=== PATIENT | male | born 1975 | race African-American/Black ===

== ENCOUNTER 2019-02-20 10:29 | Inpatient (IN) | payer BC, OTHER ==
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
[2019-02-20] MEDS ORDERED: SODIUM CHLORIDE 0.9% 500 ML INFUS.BAG IV ONE ×2 (10:54→11:46)
[2019-02-20 11:38] LABS: ALBUMIN 5.1 g/dl (3.4-5.0); BILIRUBIN,TOTAL 2.4 mg/dl (0.2-1); CALCIUM 12.1 mg/dl (8.5-10); CREATININE 1.6 mg/dl (0.55-1.3); POTASSIUM 4.3 mmol/L (3.5-5.1); TOT PROT 8.4 g/dl (6.4-8.2)
[2019-02-20] MEDS ORDERED: INSULIN REGULAR 100 UNITS in SODIUM CHLORIDE 99 ML IVPB SCH (11:45)
[2019-02-20] MEDS ORDERED: INSULIN REGULAR HUMAN 100 UNITS/ML *VIAL IVPUSH ONE (11:45)
[2019-02-20 11:59] LABS: HEMATOCRIT 52.6 % (35.4-49); HEMOGLOBIN 16.5 GM/dl (11.7-16.9); MCH 26.2 pg (25.7-33.7); MCHC 31.5 g/dl (32.0-35.9); MEAN CELL VOLUME 83.2 fl (80-96); MEAN PLT VOLUME 11.1 fl (7.5-11.1); PLATELET COUNT 191 K/MM3 (134-434); RBC 6.32 M/mm3 (4.00-5.60); RDW 14.3 % (11.9-15.9); WHITE BLOOD COUNT 16.3 K/mm3 (4.0-10.8)
[2019-02-20] MEDS ORDERED: INSULIN REGULAR HUMAN 100 UNITS/ML *VIAL ONE (12:01)
[2019-02-20 12:10] LABS: EPITHELIAL CELLS RARE /hpf
[2019-02-20 12:14] LABS: VENOUS PC02 19.9 mmHg (38-52); VENOUS PO2 90.4 mmHg (28-48)
[2019-02-20 12:21] LABS: VENOUS PH 7.17 (7.31-7.41)
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
[2019-02-20 13:08] LABS: PLATELET ESTIMATE ADEQUATE
[2019-02-20] MEDS ORDERED: SODIUM CHLORIDE 0.45%/POT 20 MEQ/1,000 ML INFUS.BAG IV SCH (14:30)
[2019-02-20] MEDS ORDERED: SODIUM CHLORIDE 0.45% 1,000 ML IV SCH (14:30)
--- NOTE | 2019-02-20 14:44 | CONSULT ---
Consultation: REQUESTING PROVIDER: Bettina . CONSULT REQUEST: We have been asked to medically evaluate this patient for ( Diabetic Ketoacidosis). HISTORY OF PRESENT ILLNESS: Pt's spouse at bedside providing history as pt lethargic. Pt is a 43 y/o M with a significant past medical history of borderline HTN, Concussion (Apr 2018), and Depression who presented to [facility] ED due to increased thirst, urination, and decreased energy. Spouse endorses that pt has been c/o symptoms for 3 weeks. This past Wednesday, pt was extremely lethargic and spouse had to help him with routine activities. Pt has never been diagnosed with DM in the past. Pt has lost 30 lbs within past few months 2/2 depression, per spouse. PMH- as above SocialHx- Denies Alcohol or tobacco use. - [place] SurgHx- Nerve Block for migraines REVIEW OF SYSTEMS: CONSTITUTIONAL: Absent: fever, chills, diaphoresis, generalized weakness, malaise, loss of appetite, weight change HEENT: Absent: rhinorrhea, nasal congestion, throat pain, throat swelling, difficulty swallowing, mouth swelling, ear pain, eye pain, visual changes CARDIOVASCULAR: Absent: chest pain, syncope, palpitations, irregular heart rate, lightheadedness , peripheral edema RESPIRATORY: Absent: cough, shortness of breath, dyspnea with exertion, orthopnea, wheezing, stridor, hemoptysis GASTROINTESTINAL: Absent: abdominal pain, abdominal distension, nausea, vomiting, diarrhea, constipation, melena, hematochezia GENITOURINARY: Absent: dysuria, frequency, urgency, hesitancy, hematuria, flank pain, genital pain MUSCULOSKELETAL: Absent: myalgia, arthralgia, joint swelling, back pain, neck pain SKIN: Absent: rash, itching, pallor HEMATOLOGIC/IMMUNOLOGIC: Absent: easy bleeding, easy bruising, lymphadenopathy, frequent infections ENDOCRINE: PRESENT: unexplained weight loss, increased thirst, increased urination NEUROLOGIC: Absent: headache, focal weakness or paresthesias, dizziness, unsteady gait, seizure, mental status changes, bladder or bowel incontinence PSYCHIATRIC: Absent: anxiety, depression, suicidal or homicidal ideation, hallucinations. PHYSICAL EXAMINATION Vital Signs - 24 hr 02/20/19 02/20/19 02/20/19 10:30 11:30 12:21 Temperature 99.6 F 99.6 F Pulse Rate 150 H Pulse Rate [ 143 H 137 H Left] Respiratory 22 H 18 20 Rate Blood Pressure 154/104 H Blood Pressure 158/103 H 156/106 H [Left Arm] O2 Sat by Pulse 99 99 100 Oximetry (%) 02/20/19 02/20/19 12:31 14:33 Temperature 98.9 F Pulse Rate Pulse Rate [ 140 H Left] Respiratory 21 H 22 H Rate Blood Pressure Blood Pressure 168/86 138/92 [Left Arm] O2 Sat by Pulse 100 99 Oximetry (%) GENERAL: Somnolent HEAD: Normal with no signs of trauma. EYES: EOMI Sclera Clear EARS, NOSE, THROAT: Dry mucous membranes LUNGS: CTAB HEART: Tachycardic S1S2 ABDOMEN: NDNT. LOWER EXTREMITIES: No CCE Laboratory Results - last 24 hr 02/20/19 02/20/19 02/20/19 10:49 11:04 11:04 WBC 16.3 H RBC 6.32 H Hgb 16.5 Hct 52.6 H MCV 83.2 MCH 26.2 MCHC 31.5 L RDW 14.3 Plt Count 191 MPV 11.1 Absolute Neuts (auto) 14.4 Neutrophils % No Result Required. Neutrophils % (Manual) 88.0 H Band Neutrophils % 2.0 Lymphocytes % No Result Required. Lymphocytes % (Manual) 8.0 Monocytes % (Manual) 2 L Platelet Estimate Adequate Platelet Comment Moderate large plts VBG pH POC VBG pCO2 POC VBG pO2 VBG HCO3 VBG O2 Sat (Ld) VBG Base Excess Sodium 135 L Potassium 4.3 Chloride 102 Carbon Dioxide 7 L Anion Gap 26 H BUN 28.0 H Creatinine 1.6 H Est GFR (CKD-EPI)AfAm 60.68 Est GFR (CKD-EPI)NonAf 52.36 POC Glucometer > 600 Random Glucose 963 H* Lactic Acid Calcium 12.1 H Total Bilirubin 2.4 H AST 23 ALT 53 Alkaline Phosphatase 131 H Creatine Kinase Troponin I Total Protein 8.4 H Albumin 5.1 H Urine Color Urine Appearance Urine pH Urine Protein Urine Glucose (UA) Urine Ketones Urine Blood Urine Nitrite Urine Bilirubin Urine Urobilinogen Ur Leukocyte Esterase Urine RBC Urine WBC Ur Transition Epith Cell Urine Casts 02/20/19 02/20/19 02/20/19 11:04 11:04 11:04 WBC RBC Hgb Hct MCV MCH MCHC RDW Plt Count MPV Absolute Neuts (auto) Neutrophils % Neutrophils % (Manual) Band Neutrophils % Lymphocytes % Lymphocytes % (Manual) Monocytes % (Manual) Platelet Estimate Platelet Comment VBG pH POC VBG pCO2 POC VBG pO2 VBG HCO3 VBG O2 Sat (Ld) VBG Base Excess Sodium Potassium Chloride Carbon Dioxide Anion Gap BUN Creatinine Est GFR (CKD-EPI)AfAm Est GFR (CKD-EPI)NonAf POC Glucometer Random Glucose Lactic Acid 2.8 H* Calcium Total Bilirubin AST ALT Alkaline Phosphatase Creatine Kinase 36 Troponin I < 0.03 Total Protein Albumin Urine Color Urine Appearance Urine pH Urine Protein Urine Glucose (UA) Urine Ketones Urine Blood Urine Nitrite Urine Bilirubin Urine Urobilinogen Ur Leukocyte Esterase Urine RBC Urine WBC Ur Transition Epith Cell Urine Casts 02/20/19 02/20/19 02/20/19 11:04 11:04 14:09 WBC RBC Hgb Hct MCV MCH MCHC RDW Plt Count MPV Absolute Neuts (auto) Neutrophils % Neutrophils % (Manual) Band Neutrophils % Lymphocytes % Lymphocytes % (Manual) Monocytes % (Manual) Platelet Estimate Platelet Comment VBG pH 7.17 L* POC VBG pCO2 19.9 L POC VBG pO2 90.4 H VBG HCO3 7.0 L VBG O2 Sat (Ld) 95.0 H VBG Base Excess -20.8 L Sodium Potassium Chloride Carbon Dioxide Anion Gap BUN Creatinine Est GFR (CKD-EPI)AfAm Est GFR (CKD-EPI)NonAf POC Glucometer 564 Random Glucose Lactic Acid Calcium Total Bilirubin AST ALT Alkaline Phosphatase Creatine Kinase Troponin I Total Protein Albumin Urine Color Yellow Urine Appearance Clear Urine pH 5.0 Urine Protein 1+ H Urine Glucose (UA) 2+ Urine Ketones 4+ H Urine Blood 1+ H Urine Nitrite Negative Urine Bilirubin Negative Urine Urobilinogen 0.2 Ur Leukocyte Esterase Negative Urine RBC 2-5 Urine WBC 0-2 Ur Transition Epith Cell Rare Urine Casts Finely granular 0-1 Active Medications Generic Name Dose Route Start Last Admin Trade Name Freq PRN Reason Stop Dose Admin Chlorhexidine Gluconate 1 applic 02/20/19 22:00 Hibiclens For Decolonization - TP HS CHOLO Enoxaparin Sodium 40 mg 02/21/19 10:00 Lovenox - SQ DAILY CHOLO Insulin Human Regular 100 100 mls @ 8.84 mls/hr 02/20/19 11:45 02/20/19 12:12 units/ Sodium Chloride IVPB 0.1 units/kg/hr TITR CHOLO 8.84 mls/hr Administration Protocol 0.1 UNITS/KG/HR Potassium Chloride 40 meq/ 1,020 mls @ 125 mls/hr 02/20/19 14:45 Sodium Chloride IVPB ASDIR CHOLO Mupirocin 1 applic 02/20/19 22:00 Bactroban Ointment (For Decolonization) - NS 02/25/19 21:59 BID CHOLO ASSESSMENT/PLAN: Pt is a 43 y/o M with a significant past medical history of borderline HTN, Concussion (Apr 2018), and Depression who presented to [facility] ED due to increased thirst, urination, and decreased energy; found to be in DKA. #Diabetic Ketoacidosis -VBH PH 7.17, CO2 7, AG 27, Urine Ketones 4+, B Hydroxybutyrate pending, Glucose 963 -Bolus with NS and LR. Placed on standing fluids at 150cc. -BGMQ1H, BMP Q3H -Once Glucose <250, will switch fluids to D5 1/2 NS to prevent hypoglycemia -Once anion gap closed and ketosis resolved, will bridge to SC insulin and place pt on diet. -Counseled on diabetic diet and compliance with medication. #Depression -Resume home PO meds in am #FEN -NS w/ 40 mEQ KCL -Monitor Electrolytes -Diet when has appetite and ketosis resolving DVT ppx: -Shad SQ Daily Dispo: We will continue to follow the patient. Thank you for this consultative opportunity. Visit type - Emergency Visit Emergency Visit: Yes ED Registration Date: 02/20/19 Care time: The patient presented to the Emergency Department on the above date and was hospitalized for further evaluation of their emergent condition. - New Patient This patient is new to me today: Yes Date on this admission: 02/20/19 - Critical Care Critical Care patient: Yes Total Critical Care Time (in minutes): 35 Critical Care Statement: The care of this patient involved high complexity decision making to prevent further life threatening deterioration of the patient 's condition and/or to evaluate & treat vital organ system(s) failure or risk of failure. ATTENDING PHYSICIAN STATEMENT I saw and evaluated the patient. I reviewed the resident's note and discussed the case with the resident. I agree with the resident's findings and plan as documented. SUBJECTIVE: OBJECTIVE: ASSESSMENT AND PLAN:
[2019-02-20] MEDS ORDERED: SODIUM CHLORIDE 0.45% 1,000 ML with POTASSIUM CHLORIDE 40 MEQ IVPB SCH (14:45)
[2019-02-20] MEDS ORDERED: traZODone HCL 50 MG TABLET (FP) PO PRN (14:58)
[2019-02-20] MEDS ORDERED: MECLIZINE HCL 12.5 MG TABLET PO PRN (14:58)
[2019-02-20] MEDS ORDERED: LACTATED RINGERS SOLUTION 1,000 ML/1,000 ML INFUS.BAG IV ONE (17:09)
[2019-02-20 18:13] LABS: HEMATOCRIT 49.8 % (35.4-49); HEMOGLOBIN 15.6 GM/dl (11.7-16.9); MCH 25.2 pg (25.7-33.7); MCHC 31.4 g/dl (32.0-35.9); MEAN CELL VOLUME 80.3 fl (80-96); WHITE BLOOD COUNT 18.4 K/mm3 (4.0-10.8)
[2019-02-20 18:14] LABS: BASO % 0.4 % (0-2.0); LYMPH % 9.1 % (8-40); MEAN PLT VOLUME 12.5 fl (7.5-11.1); MONO % 12.8 % (3.8-10.2); NEUT % 77.7 % (42.8-82.8); PLATELET COUNT 232 K/MM3 (134-434); RDW 14.6 % (11.9-15.9)
[2019-02-20] MEDS: KCL 10 MEQ IVPB 10 MEQ/100 ML INFUS.BAG IVPB SCH ×2 (18:38→20:31)
[2019-02-20 19:29] LABS: BLOOD UREA NITROGEN 21.6 mg/dL (7-18); CREATININE 1.6 mg/dL (0.55-1.3); POTASSIUM 3.2 mmol/L (3.5-5.1)
[2019-02-20 19:30] LABS: ALBUMIN 4.1 g/dl (3.4-5.0); BILIRUBIN,TOTAL 0.7 mg/dL (0.2-1); CALCIUM 11.1 mg/dL (8.5-10.1); MAGNESIUM 2.8 mg/dL (1.8-2.4); TOT PROT 7.7 g/dl (6.4-8.2)
[2019-02-20] MEDS ORDERED: POTASSIUM PHOSPHATE 20 MM in SODIUM CHLORIDE 250 ML IVPB ONE (19:35)
[2019-02-20 19:49] LABS: HYALINE CASTS 44 /lpf (0-8); PH,URINE 5.5 (5.0-8.0); URINE APPEARANCE CLEAR; URINE BACTERIA 0.2 /hpf (NEGATIVE); URINE BILIRUBIN NEGATIVE (NEGATIVE); URINE COLOR YELLOW; URINE GLUCOSE (UA) 3+ (NEGATIVE); URINE KETONE 4+ (NEGATIVE); URINE LEUK ESTERASE NEGATIVE (NEGATIVE); URINE NITRITE NEGATIVE (NEGATIVE); URINE PROTEIN 2+ (NEGATIVE); URINE RBC 1 /hpf (0-4); URINE UROBILINOGEN 0.2 mg/dL (0.2-1.0); URINE WBC 1 /hpf (0-5)
[2019-02-20] MEDS ORDERED: D5-1/2NS+20 MEQ KCL - 20 MEQ/1,000 ML INFUS.BAG IV SCH ×2 (21:00→21:01)
[2019-02-20 21:02] LABS: CALCIUM 10.1 mg/dL (8.5-10.1); CREATININE 1.4 mg/dL (0.55-1.3); POTASSIUM 3.4 mmol/L (3.5-5.1)
[2019-02-20] MEDS: GABAPENTIN 300 MG CAPSULE (FP) PO SCH (21:54)
[2019-02-20] MEDS: MUPIROCIN 2% TOPICAL OINTMENT FOR DECOLONIZATION NS SCH (21:54)
[2019-02-20] MEDS ORDERED: MUPIROCIN 2% TOPICAL OINTMENT FOR DECOLONIZATION NS SCH (22:00)
[2019-02-20] MEDS ORDERED: CYCLOBENZAPRINE HCL 5 MG TABLET PO SCH (22:00)
[2019-02-20] MEDS ORDERED: DONEPEZIL HCL 10 MG TABLET (FP) PO SCH (22:00)
[2019-02-20] MEDS ORDERED: CHLORHEXIDINE GLUCONATE 4% CLEANSER FOR DECOLONIZATION TP SCH ×2 (22:00)
[2019-02-20] MEDS ORDERED: MAG HYDROX/AL HYDROX/SIMETH 30 ML UNIT-DOSE CUP PO ONE (23:27)
[2019-02-21 01:58] LABS: BLOOD UREA NITROGEN 19.9 mg/dL (7-18); CALCIUM 9.6 mg/dL (8.5-10.1); CREATININE 1.3 mg/dL (0.55-1.3); POTASSIUM 4.5 mmol/L (3.5-5.1)
[2019-02-21] MEDS ORDERED: INSULIN (LEVEMIR) 100 UNITS/ML UNITS SQ ONE (03:07)
[2019-02-21] MEDS ORDERED: LACTATED RINGERS SOLUTION 1,000 ML/1,000 ML INFUS.BAG IV SCH (04:00)
[2019-02-21] MEDS: GABAPENTIN 300 MG CAPSULE (FP) PO SCH ×3 (05:51→21:21)
[2019-02-21 07:47] LABS: POTASSIUM 3.6 mmol/L (3.5-5.1)
[2019-02-21 07:49] LABS: ALBUMIN 3.3 g/dl (3.4-5.0); BILIRUBIN,TOTAL 0.9 mg/dL (0.2-1); BLOOD UREA NITROGEN 18.4 mg/dL (7-18); CALCIUM 9.1 mg/dL (8.5-10.1); CREATININE 1.2 mg/dL (0.55-1.3); MAGNESIUM 2.4 mg/dL (1.8-2.4)
[2019-02-21 07:50] LABS: PHOSPHOROUS 1.1 mg/dL (2.5-4.9)
[2019-02-21] MEDS ORDERED: POTASSIUM CHLORIDE ORAL LIQUID 20 MEQ/15 ML PO ONE (07:52)
[2019-02-21] MEDS ORDERED: NAPH,MB-DB/K PH,MBDB POWDER PACKET PO ONE (07:52)
[2019-02-21 07:58] LABS: HEMATOCRIT 41.5 % (35.4-49); HEMOGLOBIN 13.2 GM/dL (11.7-16.9); MCH 25.5 pg (25.7-33.7); MCHC 31.8 g/dl (32.0-35.9); MEAN PLT VOLUME 12.5 fl (7.5-11.1); PLATELET COUNT 169 K/MM3 (134-434); RBC 5.18 M/mm3 (4.00-5.60); RDW 14.2 % (11.9-15.9); WHITE BLOOD COUNT 19.4 K/mm3 (4.0-10.0)
[2019-02-21 07:59] LABS: BASO % 0.3 % (0-2.0); LYMPH % 10.8 % (8-40); MONO % 11.4 % (3.8-10.2); NEUT % 77.5 % (42.8-82.8)
[2019-02-21 09:20] LABS: INR 0.99 (0.83-1.09)
[2019-02-21 09:21] LABS: PROTHROMBIN TIME (PATIENT) 11.7 SEC (9.7-13.0)
[2019-02-21 09:22] LABS: ACTIVATED PTT 25.5 SECONDS (25.2-36.5)
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
[2019-02-21 09:55] LABS: BLOOD UREA NITROGEN 18.8 mg/dL (7-18); CALCIUM 9.6 mg/dL (8.5-10.1); CREATININE 1.1 mg/dL (0.55-1.3); POTASSIUM 3.5 mmol/L (3.5-5.1)
[2019-02-21] MEDS ORDERED: ENOXAPARIN NA (PORCINE) 40 MG/0.4 ML DISP.SYRIN SQ SCH (10:00)
[2019-02-21] MEDS ORDERED: INSULIN SLIDING SCALE (NOVOLOG) 1 VIAL SQ SCH ×3 (11:00→16:30)
[2019-02-21] MEDS ORDERED: MAG HYDROX/AL HYDROX/SIMETH 30 ML UNIT-DOSE CUP PO PRN ×2 (11:05→12:42)
[2019-02-21] MEDS ORDERED: LISINOPRIL 5 MG TABLET (FP) PO SCH (11:15)
--- NOTE | 2019-02-21 11:30 | PN ---
Teaching Attending Note Name of Resident: Iam Castellanos ATTENDING PHYSICIAN STATEMENT I saw and evaluated the patient. I reviewed the resident's note and discussed the case with the resident. I agree with the resident's findings and plan as documented. SUBJECTIVE: Pt seen and examined in the ICU. Off insulin gtt. Feels better today. Tolerating PO. OBJECTIVE: Vital Signs Period Temp Pulse Resp BP Sys/Kent Pulse Ox Last 24 Hr 97.4 F-99.6 F 100-143 12-22 133-170/74-106 99-100 Intake & Output 02/18/19 02/19/19 02/20/19 02/21/19 23:59 23:59 23:59 23:59 Intake Total 532 1280.8 Output Total 1545 750 Balance -1013 530.8 Weight 88.451 kg Gen: NAD at rest Heart: RRR Lung: decreased breath sounds at the bases Abd: soft, nontender Ext: no edema CBC, BMP 02/21/19 06:20 02/21/19 09:00 Active Medications Al Hydroxide/Mg Hydroxide (Mylanta Oral Suspension -) 30 ml PO Q6H PRN PRN Reason: DYSPEPSIA Bupropion HCl (Wellbutrin Xl -) 150 mg PO DAILY ON LICENSE OF [facility] Last Admin: 02/21/19 09:37 Dose: 150 mg Chlorhexidine Gluconate (Hibiclens For Decolonization -) 1 applic TP HS ON LICENSE OF [facility] Last Admin: 02/20/19 21:54 Dose: 1 applic Cyclobenzaprine HCl (Cyclobenzaprine Hcl) 5 mg PO HS ON LICENSE OF [facility] Last Admin: 02/20/19 21:54 Dose: 5 mg Donepezil HCl (Aricept -) 10 mg PO HS ON LICENSE OF [facility] Last Admin: 02/20/19 21:53 Dose: 10 mg Enoxaparin Sodium (Lovenox -) 40 mg SQ DAILY ON LICENSE OF [facility] Last Admin: 02/21/19 09:37 Dose: 40 mg Gabapentin (Neurontin -) 300 mg PO TID ON LICENSE OF [facility] Last Admin: 02/21/19 05:51 Dose: 300 mg Potassium Chloride/Dextrose/Sod Cl (D5-1/2ns+20 Meq Kcl -) 20 meq in 1,000 mls @ 150 mls/hr IV ASDIR ON LICENSE OF [facility] Last Admin: 02/20/19 21:11 Dose: 150 mls/hr Lactated Ringer's (Lactated Ringers Solution) 1,000 ml in 1,000 mls @ 125 mls/ hr IV ASDIR CHOLO Last Admin: 02/21/19 04:27 Dose: 125 mls/hr Sodium Chloride (1/2 Normal Saline) 1,000 mls @ 75 mls/hr IV ASDIR CHOLO Insulin Aspart (Novolog Vial Sliding Scale -) 1 vial SQ ACHS CHOLO; Protocol Lisinopril (Prinivil) 5 mg PO DAILY CHOLO Meclizine HCl (Antivert -) 12.5 mg PO Q12H PRN PRN Reason: VERTIGO Mupirocin (Bactroban Ointment (For Decolonization) -) 1 applic NS BID CHOLO Stop: 02/25/19 21:59 Last Admin: 02/20/19 21:54 Dose: 1 applic Trazodone HCl (Desyrel -) 50 mg PO HS PRN PRN Reason: INSOMNIA ASSESSMENT AND PLAN: Diabetic Ketoacidosis improving HTN Depression - glucose control - 1/2 NS - monitor lytes - nutrition consult - PO as tolerated - start BIRDIE/ARB - DVT prophylaxis - can monitor on floor
[2019-02-21] MEDS: SODIUM CHLORIDE 0.45% 1,000 ML IV SCH ×2 (11:45→21:20)
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
[2019-02-21] MEDS: MUPIROCIN 2% TOPICAL OINTMENT FOR DECOLONIZATION NS SCH ×2 (12:42→21:21)
[2019-02-21] MEDS ORDERED: traZODone HCL 50 MG TABLET (FP) PO PRN (12:42)
[2019-02-21] MEDS ORDERED: MECLIZINE HCL 12.5 MG TABLET PO PRN (12:42)
[2019-02-21 12:51] VITALS: BMI 26.4
--- NOTE | 2019-02-21 12:53 | EKG ---
Test Reason : Blood Pressure : / mmHG Vent. Rate : 147 BPM Atrial Rate : 147 BPM P-R Int : 128 ms QRS Dur : 082 ms QT Int : 320 ms P-R-T Axes : 075 067 050 degrees QTc Int : 500 ms SINUS TACHYCARDIA MINIMAL VOLTAGE CRITERIA FOR LVH, MAY BE NORMAL VARIANT NONSPECIFIC ST ABNORMALITY ABNORMAL ECG WHEN COMPARED WITH ECG OF 02-NOV-2013 12:28, VENT. RATE HAS INCREASED BY [address] NOW DEPRESSED IN LATERAL LEADS T WAVE INVERSION MORE EVIDENT IN INFERIOR LEADS T WAVE AMPLITUDE HAS INCREASED IN ANTERIOR LEADS NONSPECIFIC T WAVE ABNORMALITY NOW EVIDENT IN LATERAL LEADS Confirmed by Gareth Ramos MD ([id number]) on 02/21/2019 12:52:53 PM Referred By: KHAI LOPEZ Confirmed By:Gareth Ramos MD
[2019-02-21] MEDS: INSULIN SLIDING SCALE (NOVOLOG) 1 VIAL SQ SCH ×2 (17:28→21:35)
[2019-02-21] MEDS: DONEPEZIL HCL 10 MG TABLET (FP) PO SCH (21:21)
[2019-02-21] MEDS: CYCLOBENZAPRINE HCL 5 MG TABLET PO SCH (21:21)
[2019-02-22] MEDS: GABAPENTIN 300 MG CAPSULE (FP) PO SCH ×3 (06:19→22:30)
[2019-02-22] MEDS: INSULIN SLIDING SCALE (NOVOLOG) 1 VIAL SQ SCH ×3 (06:22→17:09)
[2019-02-22] MEDS ORDERED: INSULIN (LEVEMIR) 100 UNITS/ML UNITS SQ SCH (07:00)
[2019-02-22 08:10] LABS: BASO % 0.4 % (0-2.0); EOS % 0.1 % (0-4.5); HEMATOCRIT 38.1 % (35.4-49); HEMOGLOBIN 12.4 GM/dL (11.7-16.9); LYMPH % 27.1 % (8-40); MCH 25.8 pg (25.7-33.7); MCHC 32.5 g/dl (32.0-35.9); MEAN CELL VOLUME 79.3 fl (80-96); MEAN PLT VOLUME 11.8 fl (7.5-11.1); MONO % 10.8 % (3.8-10.2); NEUT % 61.6 % (42.8-82.8); PLATELET COUNT 137 K/MM3 (134-434); RBC 4.81 M/mm3 (4.00-5.60); RDW 14.2 % (11.9-15.9); WHITE BLOOD COUNT 11.3 K/mm3 (4.0-10.0)
[2019-02-22 09:21] LABS: ALBUMIN 3.1 g/dl (3.4-5.0); BILIRUBIN,TOTAL 1.3 mg/dL (0.2-1); BLOOD UREA NITROGEN 12.1 mg/dL (7-18); CALCIUM 8.6 mg/dL (8.5-10.1); CREATININE 0.9 mg/dL (0.55-1.3); MAGNESIUM 2.3 mg/dL (1.8-2.4); POTASSIUM 3.7 mmol/L (3.5-5.1); TOT PROT 5.6 g/dl (6.4-8.2)
[2019-02-22] MEDS: ENOXAPARIN NA (PORCINE) 40 MG/0.4 ML DISP.SYRIN SQ SCH (09:27)
[2019-02-22] MEDS: LISINOPRIL 5 MG TABLET (FP) PO SCH (09:27)
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
[2019-02-22] MEDS ORDERED: BISACODYL 5 MG TABLET.DR (FP) PO ONE (11:00)
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
[2019-02-22] MEDS: POLYETHYLENE GLYCOL 3350 119 GM BTL PO SCH (12:18)
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
[2019-02-22] MEDS: DOCUSATE SODIUM 100 MG CAPSULE (FP) PO SCH ×2 (13:33→22:30)
[2019-02-22] MEDS: SODIUM CHLORIDE 0.45% 1,000 ML IV SCH (13:34)
[2019-02-22] MEDS: MUPIROCIN 2% TOPICAL OINTMENT FOR DECOLONIZATION NS SCH (17:29)
[2019-02-22] MEDS ORDERED: INSULIN SLIDING SCALE (NOVOLOG) 1 VIAL SQ SCH (22:00)
[2019-02-22] MEDS: CYCLOBENZAPRINE HCL 5 MG TABLET PO SCH (22:30)
[2019-02-22] MEDS: DONEPEZIL HCL 10 MG TABLET (FP) PO SCH (22:31)
[2019-02-23] MEDS: INSULIN SLIDING SCALE (NOVOLOG) 1 VIAL SQ SCH (06:23)
[2019-02-23] MEDS: GABAPENTIN 300 MG CAPSULE (FP) PO SCH ×2 (06:23→14:03)
[2019-02-23] MEDS: DOCUSATE SODIUM 100 MG CAPSULE (FP) PO SCH ×2 (06:23→14:03)
[2019-02-23] MEDS ORDERED: INSULIN (LEVEMIR) 100 UNITS/ML UNITS SQ SCH (07:00)
[2019-02-23] MEDS ORDERED: INSULIN SLIDING SCALE (NOVOLOG) 1 VIAL SQ SCH (08:20)
[2019-02-23 09:51] LABS: BASO % 0.6 % (0-2.0); EOS % 0.4 % (0-4.5); HEMATOCRIT 37.9 % (35.4-49); HEMOGLOBIN 12.7 GM/dL (11.7-16.9); LYMPH % 33.5 % (8-40); MCH 26.2 pg (25.7-33.7); MCHC 33.4 g/dl (32.0-35.9); MEAN CELL VOLUME 78.5 fl (80-96); MEAN PLT VOLUME 11.6 fl (7.5-11.1); MONO % 11.2 % (3.8-10.2); NEUT % 54.3 % (42.8-82.8); PLATELET COUNT 126 K/MM3 (134-434); RBC 4.83 M/mm3 (4.00-5.60); WHITE BLOOD COUNT 8.2 K/mm3 (4.0-10.0)
[2019-02-23 10:07] LABS: ALBUMIN 3.2 g/dl (3.4-5.0); CALCIUM 8.8 mg/dL (8.5-10.1); CREATININE 0.7 mg/dL (0.55-1.3); MAGNESIUM 2.2 mg/dL (1.8-2.4); POTASSIUM 3.4 mmol/L (3.5-5.1); TOT PROT 5.7 g/dl (6.4-8.2)
[2019-02-23] MEDS ORDERED: POTASSIUM CHLORIDE TABS 20 MEQ TABLET.ER (FP) PO ONE (10:30)
--- NOTE | 2019-02-23 11:04 | PN ---
Progress Note (short form) - Note Progress Note: Feels good Denies any complaints Vital Signs Period Temp Pulse Resp BP Sys/Kent Pulse Ox Last 24 Hr 97.9 F-98.7 F 98-118 18-20 138-159/62-99 98 PE: AOx3 Neck: supple, No JVD HEENT: PERRL, EOMI Lungs: CTA CVs: s1S2 Abd: Benign Ext: No edema Neuro: No focal deficit ] CMP Sodium 141 mmol/L (136-145) 02/23/19 08:25 Potassium 3.4 mmol/L (3.5-5.1) L 02/23/19 08:25 Chloride 106 mmol/L (98-107) 02/23/19 08:25 Carbon Dioxide 21 mmol/L (21-32) 02/23/19 08:25 Anion Gap 14 MMOL/L (8-16) 02/23/19 08:25 BUN 10.0 mg/dL (7-18) 02/23/19 08:25 Creatinine 0.7 mg/dL (0.55-1.3) 02/23/19 08:25 Est GFR (CKD-EPI)AfAm 134.91 02/23/19 08:25 Est GFR (CKD-EPI)NonAf 116.40 02/23/19 08:25 POC Glucometer 263 UNITS (80-120) 02/23/19 06:22 Random Glucose 248 mg/dL (74-106) H 02/23/19 08:25 Hemoglobin A1c % 13.7 % (4.2-6.3) H 02/21/19 06:20 Lactic Acid 1.0 mmol/L (0.4-2.0) 02/21/19 21:00 Calcium 8.8 mg/dL (8.5-10.1) 02/23/19 08:25 Phosphorus 1.1 mg/dL (2.5-4.9) L* 02/21/19 06:20 Magnesium 2.2 mg/dL (1.8-2.4) 02/23/19 08:25 Total Bilirubin 1.0 mg/dL (0.2-1) 02/23/19 08:25 AST 20 U/L (15-37) 02/23/19 08:25 ALT 34 U/L (13-61) 02/23/19 08:25 Alkaline Phosphatase 95 U/L (45-117) 02/23/19 08:25 Creatine Kinase 36 U/L (26-308) 02/20/19 11:04 Troponin I < 0.03 ng/ml (0.00-0.05) 02/20/19 11:04 Total Protein 5.7 g/dl (6.4-8.2) L 02/23/19 08:25 Albumin 3.2 g/dl (3.4-5.0) L 02/23/19 08:25 Current Medications Generic Name Dose Route Start Last Admin Trade Name Freq PRN Reason Stop Dose Admin Al Hydroxide/Mg Hydroxide 30 ml 02/21/19 12:42 02/22/19 01:25 Mylanta Oral Suspension - PO 30 ml Q6H PRN Administration DYSPEPSIA Bupropion HCl 150 mg 02/22/19 10:00 02/22/19 09:27 Wellbutrin Xl - PO 150 mg DAILY CHOLO Administration Cyclobenzaprine HCl 5 mg 02/21/19 22:00 02/22/19 22:30 Cyclobenzaprine Hcl PO 5 mg HS CHOLO Administration Docusate Sodium 100 mg 02/22/19 14:00 02/23/19 06:23 Colace - PO 100 mg TID CHOLO Administration Donepezil HCl 10 mg 02/21/19 22:00 02/22/19 22:31 Aricept - PO 10 mg HS CHOLO Administration Enoxaparin Sodium 40 mg 02/22/19 10:00 02/22/19 09:27 Lovenox - SQ 40 mg DAILY CHOLO Administration Gabapentin 300 mg 02/21/19 14:00 02/23/19 06:23 Neurontin - PO 300 mg TID CHOLO Administration Sodium Chloride 1,000 mls @ 75 mls/hr 02/21/19 11:15 02/22/19 13:34 1/2 Normal Saline IV 75 mls/hr ASDIR CHOLO Administration Insulin Aspart 0 vial 02/22/19 22:00 02/22/19 22:31 Novolog Vial Sliding Scale - SQ 6 unit HS CHOLO Administration Protocol Insulin Aspart 1 vial 02/23/19 08:20 Novolog Vial Sliding Scale - SQ TIDAC CHOLO Protocol Insulin Detemir 15 units 02/23/19 07:00 02/23/19 06:24 Levemir Vial SQ 15 units AM CHOLO Administration Lisinopril 5 mg 02/22/19 10:00 02/22/19 09:27 Prinivil PO 5 mg DAILY CHOLO Administration Meclizine HCl 12.5 mg 02/21/19 12:42 Antivert - PO Q12H PRN VERTIGO Polyethylene Glycol 17 gm 02/22/19 11:00 02/22/19 12:18 Miralax (For Daily Use) - PO 17 grams DAILY CHOLO Administration Trazodone HCl 50 mg 02/21/19 12:42 Desyrel - PO HS PRN INSOMNIA AP: DKA New Onset DM BGM QACHS Increase Levemir 18 units daily in AM Novolog coverage Nutrition consult Teach pt to self monitor blood sugar and self inject insulin Pt will need to go home of Insulin Test for C peptide and FELIX and Islet cell ab as outpt. If pt is found to be producing significant amount of Insulin, it maybe possible to transition him to oral hypogycemics. Will F//U
[2019-02-23] MEDS ORDERED: PT OWN MED DRAWER 7, Y5N ONE (11:06)
[2019-02-23] MEDS: SODIUM CHLORIDE 0.45% 1,000 ML IV SCH (11:09)
[2019-02-23] MEDS: ENOXAPARIN NA (PORCINE) 40 MG/0.4 ML DISP.SYRIN SQ SCH (11:13)
[2019-02-23] MEDS: LISINOPRIL 5 MG TABLET (FP) PO SCH (11:41)
[2019-02-23] MEDS: POLYETHYLENE GLYCOL 3350 119 GM BTL PO SCH (11:41)
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
--- NOTE | 2019-02-23 13:26 | PN ---
Progress Note, Physician History of Present Illness: stable no new issues wbc has normalized - Current Medication List Current Medications: Active Medications Al Hydroxide/Mg Hydroxide (Mylanta Oral Suspension -) 30 ml PO Q6H PRN PRN Reason: DYSPEPSIA Last Admin: 02/22/19 01:25 Dose: 30 ml Bupropion HCl (Wellbutrin Xl -) 150 mg PO DAILY [facility] Last Admin: 02/23/19 11:14 Dose: 150 mg Cyclobenzaprine HCl (Cyclobenzaprine Hcl) 5 mg PO HS [facility] Last Admin: 02/22/19 22:30 Dose: 5 mg Docusate Sodium (Colace -) 100 mg PO TID [facility] Last Admin: 02/23/19 06:23 Dose: 100 mg Donepezil HCl (Aricept -) 10 mg PO HS [facility] Last Admin: 02/22/19 22:31 Dose: 10 mg Enoxaparin Sodium (Lovenox -) 40 mg SQ DAILY [facility] Last Admin: 02/23/19 11:13 Dose: 40 mg Gabapentin (Neurontin -) 300 mg PO TID [facility] Last Admin: 02/23/19 06:23 Dose: 300 mg Sodium Chloride (1/2 Normal Saline) 1,000 mls @ 75 mls/hr IV ASDIR [facility] Last Admin: 02/23/19 11:09 Dose: 75 mls/hr Insulin Aspart (Novolog Vial Sliding Scale -) 0 vial SQ HS [facility]; Protocol Last Admin: 02/22/19 22:31 Dose: 6 unit Insulin Aspart (Novolog Vial Sliding Scale -) 1 vial SQ TIDAC [facility]; Protocol Last Admin: 02/23/19 12:13 Dose: 8 units Insulin Detemir (Levemir Vial) 15 units SQ AM [facility] Last Admin: 02/23/19 06:24 Dose: 15 units Lisinopril (Prinivil) 5 mg PO DAILY [facility] Last Admin: 02/23/19 11:41 Dose: 5 mg Meclizine HCl (Antivert -) 12.5 mg PO Q12H PRN PRN Reason: VERTIGO Polyethylene Glycol (Miralax (For Daily Use) -) 17 gm PO DAILY [facility] Last Admin: 02/23/19 11:41 Dose: Not Given Trazodone HCl (Desyrel -) 50 mg PO HS PRN PRN Reason: INSOMNIA - Objective Vital Signs: Vital Signs Temperature 98.5 F 10/17/19 06:00 Pulse Rate 102 H 02/23/19 06:00 Respiratory Rate 18 02/23/19 06:00 Blood Pressure 145/73 02/23/19 06:00 O2 Sat by Pulse Oximetry (%) 98 02/22/19 21:00 Constitutional: Yes: No Distress, Calm Cardiovascular: Yes: S1, S2 Respiratory: Yes: Regular, CTA Bilaterally Gastrointestinal: Yes: Normal Bowel Sounds, Soft Musculoskeletal: Yes: WNL Extremities: Yes: WNL Neurological: Yes: Alert, Oriented Psychiatric: Yes: Alert, Oriented Labs: CBC, BMP 02/23/19 08:25 02/23/19 08:25 INR, PTT INR 0.99 (0.83-1.09) 02/21/19 06:20 Assessment/Plan Problem List - Problems (1) Leukocytosis Code(s): D72.829 - ELEVATED WHITE BLOOD CELL COUNT, UNSPECIFIED (2) DKA (diabetic ketoacidoses) Code(s): E11.10 - TYPE 2 DIABETES MELLITUS WITH KETOACIDOSIS WITHOUT COMA Qualifiers: Diabetes mellitus type: type 1 Diabetes mellitus complication detail: without coma Qualified Code(s): E10.10 - Type 1 diabetes mellitus with ketoacidosis without coma (3) Abdominal pain Code(s): R10.9 - UNSPECIFIED ABDOMINAL PAIN (4) Acute diarrhea Code(s): R19.7 - DIARRHEA, UNSPECIFIED (5) Back pain Code(s): M54.9 - DORSALGIA, UNSPECIFIED plan continue current mgmt rest as per the team
[2019-02-23 17:57] VITALS: BP 135/75; PULSE 103; TEMP 98.3
== END 2019-02-23 15:46 | disposition home or self-care (01) | DRG 420 ==
LOC: FER 10:29 → JICU 16:47 → J5S 02-21 13:47
PROVIDERS: ADMIT Internal Medicine; ATTEND Nurse Practitioner Family
DX: E11.10 Type 2 diabetes mellitus with ketoacidosis without coma (principal); R35.8 Other polyuria; R19.7 Diarrhea, unspecified; D72.829 Elevated white blood cell count, unspecified; M54.9 Dorsalgia, unspecified; F32.9 Major depressive disorder, single episode, unspecified; G43.909 Migraine, unspecified, not intractable, without status migrainosus; R00.0 Tachycardia, unspecified; I10 Essential (primary) hypertension; E87.0 Hyperosmolality and hypernatremia; Z87.820 Personal history of traumatic brain injury; Z91.5 Personal history of self-harm; R10.9 Unspecified abdominal pain
CPT/HCPCS: 36415; 71045-TC-FY; 80048; 80053; 81003; 81015; 82010; 82550; 82803; 82962; 83036; 83605; 83735; 84100; 84484; 85025; 85610; 85730; 87040; 87086; 93005; 99285-25